=== PATIENT | female | born 1940 | race Caucasian/White ===

== ENCOUNTER 2017-10-26 07:43 | Inpatient (IN) | payer OTHER, MEDICAID ==
[~2017-10-26] VITALS: Ht 160 cm; Wt 62.2 kg
[~2017-10-26 07:43] MED LIST: A/B OTIC15 ML; AMBIEN5 MG PO; ARI10 PO; ASACOL400 MG PO; BELLADONNA ALK1 TAB PO; CILOSTAZOL50 MG PO; CLOPIDOGREL75 M1 PO; EVI60 PO; EVISTA60 MG PO; FOLIC ACID1 MG PO; LEVOTHYROXINE0.05 M2 PO; LOM PO; LOMOTIL1 TAB PO; LOPRESSOR50 MG PO; METOPROLOL50 MG PO; NAMENDA10 M2 PO; NAPROXEN D/R500 MG PO; OMEPRAZOLE D/R20 MG PO; PLA75 PO; ROB500 PO; SIMVASTATIN20 M1 PO; SULFASALAZINE500 MG PO; TRAMADOL50 MG PO; TRAZODONE50 M1 PO; VITAMIN B121000 MCG PO
[2017-10-26 09:15] LABS: BASOPHIL % 0.3 % (0-2)
[2017-10-26 09:17] LABS: PLATELET COUNT 124 x10^3mcL (130-400); RED CELL DISTRIBUTION WIDTH 15.4 % (11.5-14.5)
[2017-10-26 09:28] LABS: CALCIUM 9.8 mg/dL (8.5-10.1); CARBON DIOXIDE 29.7 mmol/L (21-32); CHLORIDE SERUM 102 mmol/L (98-107); GLUCOSE SERUM 115 mg/dL (74-106); POTASSIUM SERUM 4.2 mmol/L (3.5-5.1); SODIUM SERUM 141 mmol/L (136-145)
[2017-10-26 09:33] LABS: ALBUMIN 4.1 g/dL (3.4-5.0); ALKALINE PHOSPHATASE 63 U/L (46-116); ALT/SGPT 22 U/L (14-59); AST/SGOT 21 U/L (15-37); BILIRUBIN TOTAL 0.5 mg/dL (0.20-1.00); LIPASE 88 IU/L (73-393); TOTAL PROTEIN, SERUM 7.6 g/dL (6.4-8.2)
[2017-10-26 09:36] LABS: AMYLASE 141 U/L (25-115)
[2017-10-26] MEDS ORDERED: ARICEPT5 MG PO (10:05)
[2017-10-26] MEDS ORDERED: GOOD SENSE ASPI81 M3 PO (10:05)
[2017-10-26] MEDS ORDERED: ANASTROZOLE1 M1 PO (10:06)
[2017-10-26 12:54] VITALS: BP 127/57
[2017-10-26 13:12] LABS: MAGNESIUM 2.2 mg/dL (1.8-2.4); PHOSPHOROUS 3.4 mg/dL (2.5-4.9)
[2017-10-26 13:13] LABS: CHOLESTEROL/HDL RATIO 2.6
[2017-10-26 13:16] LABS: T3 TOTAL 1.06 ng/mL
[2017-10-26 13:46] LABS: microscopic required? NO
[2017-10-26 13:51] LABS: FREE T4 1.13 ng/dL (0.76-1.46); FREE THYROXINE INDEX 3.9 ug/dL (1.4-4.5); T4(THYROXINE) 11.1 ug/dL (4.7-13.3)
[2017-10-26 14:01] LABS: UA SPECIFIC GRAVITY 1.015 (1.005-1.035); urine erythrocyte NEGATIVE (NEGATIVE)
[2017-10-26 14:23] LABS: AMPHETAMINE QUAL UR NONE DETECTED (NEG <=1000)
[2017-10-26 16:35] VITALS: BP 132/73
[2017-10-26 21:01] VITALS: BP 148/62
[2017-10-27 05:50] VITALS: BP 135/62
[2017-10-27 07:08] LABS: CALCIUM 8.5 mg/dL (8.5-10.1); CARBON DIOXIDE 27.5 mmol/L (21-32); CHLORIDE SERUM 106 mmol/L (98-107); CREATININE SERUM 0.9 mg/dL (0.6-1.0); GLUCOSE SERUM 96 mg/dL (74-106); SODIUM SERUM 142 mmol/L (136-145)
[2017-10-27 07:10] LABS: BASOPHIL % 0.3 % (0-2); PLATELET COUNT 112 x10^3mcL (130-400); RED CELL DISTRIBUTION WIDTH 15.6 % (11.5-14.5)
[2017-10-27 09:16] VITALS: BP 148/45
[2017-10-27 13:56] VITALS: BP 111/43
[2017-10-27 16:44] VITALS: BP 120/54
[2017-10-27 17:23] VITALS: BP 134/87
[2017-10-27 21:43] VITALS: BP 122/48
[2017-10-28 05:43] VITALS: BP 128/53
[2017-10-28] MEDS ORDERED: FLA500 PO (05:55)
[2017-10-28] MEDS ORDERED: LAC PO (05:56)
[2017-10-28 06:55] LABS: BASOPHIL % 0.3 % (0-2); PLATELET COUNT 93 x10^3mcL (130-400); RED CELL DISTRIBUTION WIDTH 15.5 % (11.5-14.5)
[2017-10-28 06:59] LABS: CALCIUM 7.8 mg/dL (8.5-10.1); CARBON DIOXIDE 26.4 mmol/L (21-32); CHLORIDE SERUM 107 mmol/L (98-107); CREATININE SERUM 0.8 mg/dL (0.6-1.0); GLUCOSE SERUM 97 mg/dL (74-106); PHOSPHOROUS 2.6 mg/dL (2.5-4.9); POTASSIUM SERUM 3.6 mmol/L (3.5-5.1); SODIUM SERUM 141 mmol/L (136-145)
[2017-10-28 09:51] VITALS: BP 117/57
[2017-10-28 10:04] VITALS: BP 117/57
[2017-10-28] MEDS ORDERED: LOPRESSOR50 M1 PO (11:49)
[2017-10-28] MEDS ORDERED: NATURE'S BLEND F1 MG PO (11:51)
[2017-10-28 14:08] VITALS: BP 134/62
== END 2017-10-28 14:56 | disposition home or self-care (01) | DRG 391 ==
LOC: ED 07:43 → DU 10:05
PROVIDERS: Emergency Medicine; Family Medicine
DX: K52.9 Noninfective gastroenteritis and colitis, unspecified (principal); K85.90 Acute pancreatitis without necrosis or infection, unspecified; I42.9 Cardiomyopathy, unspecified; E03.9 Hypothyroidism, unspecified; I10 Essential (primary) hypertension; G47.00 Insomnia, unspecified; F03.90 Unspecified dementia, unspecified severity, without behavioral disturbance, psychotic disturbance, mood disturbance, and anxiety; E78.5 Hyperlipidemia, unspecified; Z68.24 Body mass index [BMI] 24.0-24.9, adult; Z86.73 Personal history of transient ischemic attack (TIA), and cerebral infarction without residual deficits; Z85.3 Personal history of malignant neoplasm of breast; Z79.82 Long term (current) use of aspirin
CPT/HCPCS: 82962; 83880; 84439; J2060; J2405; J3490; J7030; Q0092; Q9967

== ENCOUNTER 2017-11-15 17:38 | Emergency (ER) | payer OTHER, MEDICAID ==
[~2017-11-15] VITALS: Ht 160 cm; Wt 59.0 kg
[~2017-11-15 17:38] MED LIST changes: +ANASTROZOLE1 M1 PO; +ARICEPT5 MG PO; +FLA500 PO; +GOOD SENSE ASPI81 M3 PO; +LAC PO; +LOPRESSOR50 M1 PO; +NATURE'S BLEND F1 MG PO
[2017-11-15 17:57] VITALS: Ht 160 cm; Wt 59.0 kg
[2017-11-15 20:37] VITALS: BP 157/66
== END 2017-11-15 20:37 | disposition home or self-care (01) ==
LOC: ED 17:38
DX: K52.9 Noninfective gastroenteritis and colitis, unspecified (principal); Z88.5 Allergy status to narcotic agent
CPT/HCPCS: Q0162